=== PATIENT | male | born 1965 | race Caucasian/White ===

== ENCOUNTER 2017-11-16 17:10 | Inpatient (IN) | payer MEDICAID, OTHER ==
[~2017-11-16] VITALS: Ht 182.9 cm; Wt 77.1 kg
--- NOTE | 2017-11-16 19:09 | NUR ---
Pre-Admission Note Received pt at intake; accompanied by a friend, who often answer question for pt. Pt is A/Ox4, respirations even and unlabored. Pt has poor eye contact, is odorous of ETOH, appears to be intoxicated. Pt reports NKA, PMH of anxiety and depression which he takes Lexapro for. Pt reports SZ r/t ETOH withdrawal; recent one was 2 weeks ago. Pt reports admitted in the ER; pts friends had taken him due to severe intoxication 2 days ago, pt was prescribed Librium and pt reports [facility] one [facility] Initial VS are: BP 121/76, HR: 95, RR: 18 Substance Use Hx: ETOH Vodka a fifth daily the past week however pt has been drinking a total of 2 years. Pt states, he would typically buy a fifth and drink half one day and the other half, the next day. Last drink today 11/16/17 1640; pt reports he has been drinking a fifth throughout all day. First drank at age 20. Longest period of sobriety is 6 months in 2016. All pertinent info given to slot shift manager nurse.
[2017-11-16 19:29] LABS: *AMPHETAMINE, URINE NEGATIVE (NEGATIVE); *BARBITURATE, URINE NEGATIVE (NEGATIVE); *CANNABINOID, URINE NEGATIVE (NEGATIVE); *COCCAINE, URINE NEGATIVE (NEGATIVE); *OPIATE, URINE NEGATIVE (NEGATIVE); *PHENCYCLIDINE SCREEN,URINE NEGATIVE (NEGATIVE)
--- NOTE | 2017-11-16 19:30 | NUR ---
Admission note Patient is a 52 year old male admitted on 11/16/2017 at 1900. Patient is here at [facility] for medically supervised ETOH withdrawal. Patient states he has been using 750 ml (fifth) every day for a week, but he was using 375 ml for the past 2 years consistent. Patient admits he started drinking at the age of [age] years old. Patient stated: there are days when I drink half of fifth and then finish off the rest the next day. Patient has been drinking for 24 years without periods of abstinence. Patient states his longest period of sobriety was two years ago for 6 months at the end of fall 2015. Patients last drink was today 11/16/2017 at 1640 a total of fifth, a fifth spread out all day. Patient is noted to be intoxicated and is currently not showing s/s of withdrawal. Patient is noted to be tired and sleepy. Patient provided urine and blood will be done at unit. Patient admits taking Librium at 1600 and feels really tired. Patient is alert oriented x4, appears fatigue, disheveled, depressed, poor eye contact, and worried. Patient has a history of depression, anxiety, seizure, shoulder dislocated in 1982, and appendectomy 2008. Patient denies smoking or being a former smoker. Father history of alcohol and smoking abuse, and mother was a prescribed drug addict. Patient has two younger brothers and denies any past medical history. Pt brought home medications of Keppra 500 mg, Lexapro, 10 mg, Lexapro 20 mg, Librium 25 mg, and Naltrexone 50 mg. All medications have been reconciled. Patient currently sees Dr. Joanne Cabrera in [place]. Patient denies seeing a psychiatrist. Patient has been in a Detox center in [place] in 2016, he said he does not recall the name of the detox center. Patient admitted having a seizure 2 days ago and received medical treatment; patient also had another seizure two weeks ago. Patient was provided with MRSA swab testing and sent to the lab. Substance abuse 1) ETOH (Vodka): 750 ml of vodka daily for one week at this rate, and 375 ml daily for two years. Patient started drinking at age [age] years old. Last drink was 750mL on 11/16/2017 at 1640. When asked patient what are his typical withdrawal symptoms, patient stated shaky, tremors, chills with sweats, and seizures. Patient denies withdrawal induced delirium, cardiac complication, overdose and blackouts. Patient also denies being in a 5150 or SI/SA in the past. Patient is 61 and weights 170 lbs per standing scale. Patient denies any allergies, and follows a regular diet at home. Patient is a full code. Patients skin is intact, and was noted to have bilateral bruising in knees from an old fall. Patient was also noted to have bruising in the left upper quadrant/chest from a recent fall. Patient denies pain from bruising. Skin is warm, dry and capillary refill is < 3 seconds. PERRLA is present, pupils are 3 mm bilaterally. Lungs are clear bilaterally, abdomen is soft and bowel sounds are present in all four quadrants. Patient last bowel movement was earlier today 11/16/2017. Initial vital signs: BP: 108/64, O2 96% room air, Pulse 73, Temp 98.4, and RR 20. Patient denies pain. Patient admits facing legal consequences as a result of his alcohol use. Patients highest level of education is bachelors degree. 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 Patient stated: I have tried getting sober multiple times and I thought I could control it but I was wrong. Patient was asked what would be different this time, he answered: Im hoping that enough has happened where if I dont stop now, otherwise Im going to . Patient added: Zehra realized I hit a point in my life where if I dont get help now its going to get worse and worse; I just kind of surrender the last couple days I have been very mean to my friends, flipping out on them, I realize it is either now or never. Patient was oriented to the unit at 1900, teaching of rules and policies were explained to patient. Patient is on Seizure and Fall precautions. Safety measures in place, bed lock in low position, side rails up x2, and call light within reach. Respirations are even and unlabored. Will continue to monitor.
[2017-11-16 20:00] VITALS: BP 108/64
[2017-11-16] MEDS ORDERED: ONDANSETRON ODT 4 MG TAB.RAPDIS SL PRN (20:00)
[2017-11-16] MEDS ORDERED: THIAMINE HCL 200 MG/2 ML VIAL IM ONE (20:00)
[2017-11-16] MEDS ORDERED: ONDANSETRON 4 MG/2 ML VIAL IM PRN (20:00)
[2017-11-16] MEDS ORDERED: HYDROXYZINE PAMOATE 25 MG CAPSULE PO PRN (20:00)
[2017-11-16] MEDS ORDERED: DICYCLOMINE HCL 20 MG TABLET PO PRN (20:00)
[2017-11-16] MEDS ORDERED: MAGNESIUM HYDROXIDE 30 ML LIQUID UDC PO PRN (20:00)
[2017-11-16] MEDS ORDERED: LORAZEPAM 2 MG/1 ML VIAL IM PRN (20:00)
[2017-11-16] MEDS ORDERED: CLONIDINE HCL 0.1 MG TABLET PO PRN (20:00)
[2017-11-16] MEDS ORDERED: MAG HYDROX/AL HYDROX/SIMETH 30 ML LIQUID UDC PO PRN (20:00)
[2017-11-16] MEDS ORDERED: LOPERAMIDE HCL 2 MG CAPSULE PO PRN ×2 (20:00)
[2017-11-16] MEDS ORDERED: IBUPROFEN 600 MG TABLET PO PRN (20:00)
[2017-11-16] MEDS ORDERED: DIAZEPAM 10 MG TABLET PO PRN ×2 (20:00)
[2017-11-16] MEDS ORDERED: DIAZEPAM 5 MG TABLET PO PRN (20:00)
--- NOTE | 2017-11-16 20:00 | NUR ---
Initial CIWA Assessment Patient is presenting with s/s of withdrawal as followed: mild tremors, barely sweats, nervous, agitation, and light sensitivity. CIWA is 8. Respirations are even and unlabored. Safety measures in place will continue to monitor.
[2017-11-16 21:26] LABS: BILIRUBIN,TOTAL 0.4 mg/dL (0.2-1.0); CREATININE 0.9 mg/dL (0.6-1.3); POTASSIUM 3.5 mmol/L (3.5-5.1); TOTAL PROTEIN, SERUM 7.2 g/dL (6.4-8.2)
[2017-11-16 21:29] LABS: BASOPHILS # (AUTO) 0.1 K/uL (0.0-8.0); BASOPHILS % (AUTO) 3.4 % (0.0-2.0); EOSINOPHILS # (AUTO) 0.1 K/uL (0.0-0.7); EOSINOPHILS % (AUTO) 1.9 % (0.0-7.0); HEMOGLOBIN 13.9 g/dL (12.5-16.3); LYMPHOCYTES # (AUTO) 1.3 K/uL (20.0-40.0); LYMPHOCYTES % (AUTO) 40.6 % (20.5-51.5); MEAN CORPUSCULAR HEMOGLOBIN 32.8 uug (23.8-33.4); MEAN CORPUSCULAR HGB CONC 35 g/dL (32.5-36.3); MEAN CORPUSCULAR VOLUME 94.7 fL (73.0-96.2); MONOCYTES # (AUTO) 0.4 K/uL (2.0-10.0); MONOCYTES % (AUTO) 11.2 % (0.0-11.0); NEUTROPHILS # (AUTO) 1.3 K/uL (1.8-8.9); NEUTROPHILS % (AUTO) 42.9 % (38.5-71.5); PLATELET COUNT (AUTO) 139 K/uL (152-348); RED BLOOD CELL COUNT(AUTO) 4.22 MIL/uL (4.06-5.63); WHITE BLOOD COUNT (AUTO) 3.1 K/uL (3.6-10.2)
[2017-11-16 21:37] LABS: THYROID STIMULATING HORMONE 0.962 mIU/mL (0.358-3.740)
[2017-11-16] MEDS ORDERED: CHLO25CA22 PO (22:37)
[2017-11-16] MEDS ORDERED: ESCI10TA55 PO (22:37)
[2017-11-16] MEDS ORDERED: LEVE500T9 PO (22:37)
[2017-11-16] MEDS ORDERED: NALT50TA PO (22:37)
[2017-11-16] MEDS ORDERED: ESCI20TA37 PO (22:37)
[2017-11-16] MEDS: diphenhydrAMINE 50 MG CAPSULE PO PRN (23:27)
--- NOTE | 2017-11-16 23:27 | NUR ---
PRN Benadryl Patient stated he wanted something for sleep, administered PRN Benadryl and was noted to be well tolerated by patient. Respirations are even and unlabored. Safety measures in place. Will continue to monitor for medication effectiveness.
[2017-11-17] VITALS: BP 104/68
--- NOTE | 2017-11-17 | NUR ---
CIWA Deferred Patient is noted resting in bed with eyes closed, respirations are even and unlabored. Per protocol patient is to be assessed while awake for CIWA. Safety measures in place will continue to monitor.
--- NOTE | 2017-11-17 00:27 | NUR ---
PRN Benadryl Reassessment Patient noted in bed with eyes closed, respirations even and unlabored. Medication noted to be effective. Safety measures in place, will continue to monitor.
[2017-11-17 04:00] VITALS: BP 108/70
--- NOTE | 2017-11-17 07:15 | NUR ---
End of shift Patient is a 52 year old male admitted on 11/16/2017 for medically supervised ETOH withdrawal. Patients last CIWA was 8. Patient is on Seizure and Fall precautions. Patient had PRN Benadryl for sleep. Patient slept for 11 hours and had a total intake of 1,151ml. Patient voided x1 and had no bowel movements. Patient appears fatigue, disheveled, depressed, poor eye contact, flat affect, and worried. Patient had MRSA swab done upon admission. Respirations are even and unlabored, will endorse to day shift.
--- NOTE | 2017-11-17 07:20 | NUR ---
Start Of Shift Report received from medical assistant instructor nurse. Patient is a 52 year old male admitted on 11/16/2017 for medically supervised ETOH withdrawal. Per medical assistant instructor pts last CIWA was an 8. Pt received PRN Benadryl last night for insomnia, which was effective, Pt slept a total of 11 hours last night. Pt is placed on fall and seizure precautions due to history of seizures last one being two days ago. Upon assessment pt presented with tremors a flushed face and sweat on his forehead. Pt c/o feeling anxious. Encouraged pt to drink plenty of fluids to compensate the sweats as well as help with the detox process. Plan of care followed, All safety measures in place will continue to monitor and provide support.
[2017-11-17 08:00] VITALS: BP 134/95
[2017-11-17] MEDS ORDERED: TUBERCULIN,PURIF.PROT.DERIV. 5 TU/0.1 ML TEST ID ONE (09:00)
[2017-11-17] MEDS ORDERED: 5 DAY TAPER VALIUM-SERENITY PROTOCOL PO PRN (09:00)
[2017-11-17] MEDS: DIAZEPAM 10 MG TABLET PO SCH ×4 (09:25→21:00)
[2017-11-17] MEDS: MULTIVITAMINS,THERAPEUTIC TABLET PO SCH (09:25)
[2017-11-17] MEDS: THIAMINE HCL 100 MG TABLET PO SCH (09:25)
[2017-11-17] MEDS: FOLIC ACID 1 MG TABLET PO SCH (09:25)
[2017-11-17 12:00] VITALS: BP 138/76
--- NOTE | 2017-11-17 12:00 | NUR ---
CIWA 13 Pt presented with sweats, a flushed face, agitation and fine tremors, pt c/o anxiety, abdominal cramps and fatigue. Pt educated on relaxation techniques and breathing techniques to decrease anxiety, all scheduled medication administered will contine to monitor.
[2017-11-17] MEDS: LEVETIRACETAM 500 MG TABLET PO SCH ×2 (12:27→16:48)
--- NOTE | 2017-11-17 14:39 | NUR ---
Therapist prompted client to attend group therapy, but client reported feeling sick and needing to rest for today.
[2017-11-17 16:00] VITALS: BP 113/62
--- NOTE | 2017-11-17 19:03 | NUR ---
End of shift Report given to overnight babysitter nurse plan of care followed vital signs monitored closely Q4H. Withdrawal symptoms were closely monitored, medication given as scheduled. Initial CIWA 7. Pt encouraged adequate PO fluid intake as tolerated. Pt presented with sweats, flushed face, anxiety some agitation and yawning during the day. Pt received her scheduled taper medication as ordered. Pt seen by primary MD and primary psychiatrist, his home medications have been reconciled and continued. Pt did not receive any PRN medications during the day. Last CIWA 12. Pt reported that the taper medication Valium has been working well at controlling the withdrawal symptoms. Pt ate all of the meals, pt attended all groups and activities to learn new coping skills to prevent relapse. Pt denied any SI/HI. All safety measures in place, bed in lowest locked position, call light within reach. All needs met and attended.
--- NOTE | 2017-11-17 19:12 | NUR ---
Start of shift note Received report from day shift nurse. Pt is a 52 yo male, A+Ox4, presenting to [facility] for medically supervised ETOH withdrawal. Pt noted with fatigue, anxiety, and agitation. Pt has HX of depression, anxiety, and seizure which will be monitored during shift. Pt continues on 5 day Valium taper, tolerated well. Respirations even and unlabored. Will continue to monitor.
--- NOTE | 2017-11-17 20:10 | NUR ---
CIWA Assessment CIWA: 11. Pt noted with fine tremors, sweat on brow, anxiety, and agitation. Respirations even and unlabored. Will continue to monitor.
[2017-11-17 20:21] VITALS: BP 132/88
--- NOTE | 2017-11-18 00:35 | NUR ---
V/S refused and CIWA Assessment deferred for sleep. Respirations even and unlabored. Will continue to monitor.
--- NOTE | 2017-11-18 04:03 | NUR ---
V/S refused and CIWA Assessment deferred for sleep. Respirations even and unlabored. Will continue to monitor.
--- NOTE | 2017-11-18 06:57 | NUR ---
End of shift note Pt was continuously noted with fatigue, anxiety, and agitation. Pt remained in room for entire shift. Pt remained cooperative and compliant with all aspects of treatment. Pt was not given any PRN medications during shift. @2100 dose of Valium was held for sleep. Pt remains on 5 day Valium taper, tolerated well. Pt slept for a total of 7 HRS. Last CIWA: 11 @2009. Respirations even and unlabored. Will endorse to day shift nurse.
--- NOTE | 2017-11-18 07:36 | NUR ---
BEGINNING OF SHIFT Patient endorsement report received from shift production associate nurse, all pertinent information was discussed. Patient is a 52 year old male with NKA, patient with admitting dx: etoh Withdrawal. Patient continues with ongoing 5 day valium taper, patient is scheduled to begin day 2 of taper. As per shift production associate patient with last CIWA score of: 11. Received no PRNs. Slept for 7 hours. patient received awake, alert and oriented x4, educated regarding plan of care for the day and medication regimen. safety measures are in place. call light with in reach, will continue to monitor closely.
[2017-11-18 08:06] LABS: HEPATITIS B SURFACE AG Negative (Negative)
[2017-11-18 08:51] VITALS: BP 121/86
[2017-11-18] MEDS: THIAMINE HCL 100 MG TABLET PO SCH (09:09)
[2017-11-18] MEDS: LEVETIRACETAM 500 MG TABLET PO SCH ×2 (09:09→16:59)
[2017-11-18] MEDS: FOLIC ACID 1 MG TABLET PO SCH (09:09)
[2017-11-18] MEDS: MULTIVITAMINS,THERAPEUTIC TABLET PO SCH (09:09)
[2017-11-18] MEDS: DIAZEPAM 10 MG TABLET PO SCH ×3 (09:09→20:04)
[2017-11-18] MEDS: ESCITALOPRAM OXALATE 10 MG TABLET PO SCH (09:09)
[2017-11-18 12:16] VITALS: BP 122/89
--- NOTE | 2017-11-18 12:18 | NUR ---
Therapist prompted client to attend group therapy.
--- NOTE | 2017-11-18 13:00 | NUR ---
CIWA ASSESSMENT Patient continues to exhibit the following s/sx of withdrawal: Tremors, sweats, anxiety, agitation, restlessness, generalized discomfort, mild numbness to right side fingers, and emotional volatility. Patient with last CIWA score of: 14. Will continue to monitor. safety measures in place.
[2017-11-18 17:00] VITALS: BP 122/89
--- NOTE | 2017-11-18 17:00 | NUR ---
CIWA ASSESSMENT Still presenting with: Tremors, sweats, anxiety, agitation, restlessness, generalized discomfort, mild numbness to right side fingers, and emotional volatility. Patient with last CIWA score of: 14. Will continue to monitor. safety measures in place.
--- NOTE | 2017-11-18 18:47 | NUR ---
CIWA ASSESSMENT Patient exhibited the following s/sx of withdrawal: Tremors, sweats, anxiety, agitation, restlessness, generalized discomfort, mild numbness to right side fingers, and emotional volatility. Patient with last CIWA score of: 14. Will continue to monitor.
--- NOTE | 2017-11-18 19:11 | NUR ---
END OF SHIFT Patient in room, alert and oriented x4, continues under close observation, patient presented disheveled, odorous, and unkempt with poor regards to hygiene. Encouraged maintenance of personal space and self grooming. Linen change offered and declined. Patient noted isolative, encouraged to participate in group therapies/sessions to learn new coping skills to prevent relapse. Patient continues with ongoing 5 day Valium taper as ordered, continues on day 2 of taper. Patient exhibited the following s/sx of withdrawal: Tremors, sweats, anxiety, agitation, restlessness, generalized discomfort, mild numbness to right side fingers, and emotional volatility. Patient with last CIWA score of: 14. Received no PRN medications during shift. Denies SI/HI. Safety measures are in place. Fall and seizure precautions observed and in place. Call light with in reach, will continue to monitor closely. Endorsed to shift engineer nurse, all pertinent information was discussed.
--- NOTE | 2017-11-18 19:12 | NUR ---
Start of shift note Received report from day shift nurse. Pt is a 52 yo male, A+Ox4, presenting to [facility] for medically supervised ETOH withdrawal. Pt noted with anxiety, agitation, and fatigue. Pt has HX of depression, anxiety, and seizure which will be monitored during shift. Pt is on 5 day Valium taper, tolerated well. Respirations even and unlabored. Will continue to monitor.
[2017-11-18 20:10] VITALS: BP 130/97
--- NOTE | 2017-11-18 20:10 | NUR ---
CIWA Assessment CIWA: 12. Pt noted with fine tremors, sweat on forehead, anxiety, agitation, and mild itchiness. Respirations even and unlabored. Will continue to monitor.
--- NOTE | 2017-11-19 00:53 | NUR ---
V/S refused and CIWA Assessment deferred for sleep. Respirations even and unlabored. Will continue to monitor.
--- NOTE | 2017-11-19 04:26 | NUR ---
V/S refused and CIWA Assessment deferred for sleep. Respirations even and unlabored. Will continue to monitor.
--- NOTE | 2017-11-19 07:00 | NUR ---
End of shift note Pt was continuously noted with restlessness, agitation, and anxiety. Pt remained in room for majority of shift except to get food from kitchen. Pt remained cooperative and compliant with all aspects of treatment. Pt was not given any PRN medications during shift. Pt remains on 5 day Valium taper, tolerated well. Pt slept for a total of 6 HRS. Last CIWA: 12 @2009. Respirations even and unlabored. Will endorse to day shift nurse.
[2017-11-19 07:06] LABS: BILIRUBIN,TOTAL 0.7 mg/dL (0.2-1.0); CREATININE 0.8 mg/dL (0.6-1.3); POTASSIUM 3.6 mmol/L (3.5-5.1); TOTAL PROTEIN, SERUM 7.2 g/dL (6.4-8.2)
--- NOTE | 2017-11-19 07:13 | NUR ---
BEGINNING OF SHIFT Patient received awake, alert and oriented x4, educated regarding plan of care for the day and medication regimen. Patient endorsement report received from english composition teacher nurse, all pertinent information was discussed. Patient continues with ongoing 5 day valium taper, patient is scheduled to begin day 3 of taper. As per english composition teacher patient with last CIWA score of: 11. Received no PRNs. Slept for 6 hours. safety measures are in place. call light with in reach, will continue to monitor closely.
[2017-11-19 08:53] VITALS: BP 116/82
[2017-11-19] MEDS: FOLIC ACID 1 MG TABLET PO SCH (08:55)
[2017-11-19] MEDS: LEVETIRACETAM 500 MG TABLET PO SCH ×2 (08:55→16:49)
[2017-11-19] MEDS: MULTIVITAMINS,THERAPEUTIC TABLET PO SCH (08:55)
[2017-11-19] MEDS: THIAMINE HCL 100 MG TABLET PO SCH (08:55)
[2017-11-19] MEDS: DIAZEPAM 5 MG TABLET PO SCH ×4 (08:56→22:26)
[2017-11-19] MEDS: ESCITALOPRAM OXALATE 10 MG TABLET PO SCH (08:56)
--- NOTE | 2017-11-19 09:00 | NUR ---
CIWA ASSESSMENT Patient noted exhibiting the following s/sx of withdrawal: Tremors, sweats, anxiety, agitation, restlessness, generalized discomfort,, and emotional volatility. Patient with CIWA score of: 13. Safety measures in place. will continue to monitor.
[2017-11-19 12:52] VITALS: BP 102/74
--- NOTE | 2017-11-19 13:00 | NUR ---
CIWA ASSESSMENT Continues to present with: Tremors, sweats, anxiety, agitation, restlessness, generalized discomfort,, and emotional volatility. Patient with CIWA score of: 13
[2017-11-19 17:23] VITALS: BP 113/67
--- NOTE | 2017-11-19 17:36 | NUR ---
CIWA ASSESSMENT Noted exhibiting the following s/sx of withdrawal during shift. Tremors, sweats, anxiety, agitation, restlessness, generalized discomfort,, and emotional volatility. Patient with CIWA score of: 13
--- NOTE | 2017-11-19 19:00 | NUR ---
END OF SHIFT Alert and Oriented x4, admitting Dx: etoh withdrawal, patient continues under close observation patient. Noted exhibiting the following s/sx of withdrawal during shift. Tremors, sweats, anxiety, agitation, restlessness, generalized discomfort,, and emotional volatility. Patient with last CIWA score of: 13. Continues with ongoing Valium taper as ordered, detox medication effective at reducing withdrawal symptoms. Noted disheveled, unshaven, and unkempt with poor regards to hygiene. Encouraged maintenance of personal space and self grooming. Patient noted attending group therapies during shift. Encouraged continual participation in group therapies/sessions to learn new coping skills to prevent relapse. Received no PRN medications during shift. Denies SI/HI. Safety measures are in place. Fall and seizure precautions observed and in place. Call light with in reach, will continue to monitor closely. Endorsed to regulatory services consultant nurse, all pertinent information was discussed.
--- NOTE | 2017-11-19 19:10 | NUR ---
Start of shift note Received report from day shift nurse. Pt is a 52 yo male, A+Ox4, presenting to [facility] for medically supervised ETOH withdrawal. Pt noted with anxiety, agitation, and restlessness. Pt has HX of depression, anxiety, and seizure which will be monitored during shift. Pt is on 5 day Valium taper, tolerated well. Respirations even and unlabored. Will continue to monitor.
[2017-11-19 20:41] VITALS: BP 124/88
--- NOTE | 2017-11-19 20:41 | NUR ---
CIWA Assessment CIWA: 9. Pt noted with fine tremors, anxiety, agitation, and sweat on brow. Respirations even and unlabored. Will continue to monitor.
--- NOTE | 2017-11-20 00:58 | NUR ---
V/S refused and CIWA Assessment deferred for sleep. Respirations even and unlabored. Will continue to monitor.
--- NOTE | 2017-11-20 04:41 | NUR ---
V/S refused and CIWA Assessment deferred for sleep. Respirations even and unlabored. Will continue to monitor.
--- NOTE | 2017-11-20 06:58 | NUR ---
End of shift note Pt was continuously noted with restlessness, agitation , and anxiety. Pt remained in room for majority of shift except to get food from kitchen and to interact with other patients in recreational room. Pt remained cooperative and compliant with all aspects of treatment. Pt was not given any PRN medications during shift. Pt remains on 5 day Valium taper, tolerated well. Pt slept for a total of 6 HRS. Last CIWA: 9 @2040. Respirations even and unlabored. Will endorse to day shift nurse.
[2017-11-20 07:11] LABS: BASOPHILS % (AUTO) 0.6 % (0.0-2.0); EOSINOPHILS # (AUTO) 0.1 K/uL (0.0-0.7); EOSINOPHILS % (AUTO) 3.4 % (0.0-7.0); HEMATOCRIT 40.8 % (36.7-47.1); HEMOGLOBIN 14.5 g/dL (12.5-16.3); LYMPHOCYTES # (AUTO) 1.4 K/uL (20.0-40.0); MEAN CORPUSCULAR HGB CONC 36 g/dL (32.5-36.3); MEAN CORPUSCULAR VOLUME 92.8 fL (73.0-96.2); MONOCYTES # (AUTO) 0.6 K/uL (2.0-10.0); MONOCYTES % (AUTO) 14.4 % (0.0-11.0); NEUTROPHILS # (AUTO) 2.2 K/uL (1.8-8.9); NEUTROPHILS % (AUTO) 49.6 % (38.5-71.5); PLATELET COUNT (AUTO) 198 K/uL (152-348); RED BLOOD CELL COUNT(AUTO) 4.39 MIL/uL (4.06-5.63); WHITE BLOOD COUNT (AUTO) 4.4 K/uL (3.6-10.2)
[2017-11-20 07:16] LABS: BILIRUBIN,TOTAL 0.6 mg/dL (0.2-1.0); CREATININE 0.9 mg/dL (0.6-1.3); POTASSIUM 3.6 mmol/L (3.5-5.1); TOTAL PROTEIN, SERUM 7.3 g/dL (6.4-8.2)
--- NOTE | 2017-11-20 07:34 | NUR ---
BEGINNING OF SHIFT Endorsement report received from nurse, all information was discussed in regards to patient. Ongoing 5 day Valium taper, patient is scheduled to begin day 4 of taper. As per lead man over all dies in pattern shop patient with last CIWA score of: 9. Received no PRNs. Slept for 6 hours. Currently awake, alert and oriented x4, educated regarding plan of care for the day and medication regimen, with good verbal understanding.safety measures are in place. call light with in reach, will continue to monitor closely.
[2017-11-20 08:18] VITALS: BP 93/61
--- NOTE | 2017-11-20 08:45 | NUR ---
CIWA ASSESSMENT Noted to exhibiting the following s/sx of withdrawal: restlessness, generalized discomfort, Tremors, sweats, anxiety, agitation and emotional volatility. Patient with current CIWA score of: 10. Will continue to monitor.
[2017-11-20] MEDS: DIAZEPAM 5 MG TABLET PO SCH ×3 (08:48→21:42)
[2017-11-20] MEDS: LEVETIRACETAM 500 MG TABLET PO SCH ×2 (08:48→17:14)
[2017-11-20] MEDS: FOLIC ACID 1 MG TABLET PO SCH (08:48)
[2017-11-20] MEDS: MULTIVITAMINS,THERAPEUTIC TABLET PO SCH (08:48)
[2017-11-20] MEDS: THIAMINE HCL 100 MG TABLET PO SCH (08:48)
[2017-11-20] MEDS: ESCITALOPRAM OXALATE 10 MG TABLET PO SCH (08:48)
[2017-11-20 13:03] VITALS: BP 109/83
--- NOTE | 2017-11-20 13:20 | NUR ---
CIWA ASSESSMENT Still presenting with: restlessness, generalized discomfort, Tremors, sweats, anxiety, agitation and emotional volatility. Patient with current CIWA score of: 10. Will continue to monitor.
--- NOTE | 2017-11-20 16:51 | NUR ---
CIWA ASSESSMENT Continues to exhibit the following s/sx of withdrawal: restlessness, generalized discomfort, Tremors, sweats, anxiety, agitation and emotional volatility. Patient with last CIWA score of: 10. Will continue to monitor.
[2017-11-20 17:05] VITALS: BP 103/74
--- NOTE | 2017-11-20 18:59 | NUR ---
END OF SHIFT Patient alert and oriented x4, not with anxious affect and anxious mood. Provided with calming reassurance as needed. Continues under close observation, noted exhibiting the following s/sx of withdrawal: restlessness, generalized discomfort, Tremors, sweats, anxiety, agitation and emotional volatility. Patient with last CIWA score of: 10. Continues with ongoing Valium taper as ordered, detox medication effective at reducing withdrawal symptoms. Patient noted attending group therapies during shift. Encouraged continual participation in group therapies/sessions to learn new coping skills to prevent relapse. Received no PRN medications during shift. Denies SI/HI. Safety measures are in place. Fall and seizure precautions observed and in place. Call light with in reach, will continue to monitor closely. Endorsed to shift engineer nurse, all pertinent information was discussed.
--- NOTE | 2017-11-20 19:30 | NUR ---
Start of Shift Note Received a 52 y/o male px, admitted for medically supervised withdrawal from ETOH. He was put on 5 day Valium taper started on 11/17/2017. Px is tolerating it. Last reported CIWA 10 by AM shift nurse. During the rounds at 1930, px is awake on bed in fowlers position, watching TV. Few drinks noted on top of the bed side table. He states that his anxiety is pretty mild. Bilateral hand tremors noted on extended arms. Bed on lowest position, side rails up 2x, and call light within reach. Well continue to monitor.
[2017-11-20 20:00] VITALS: BP 108/80
--- NOTE | 2017-11-20 20:00 | NUR ---
CIWA 8 Upon assessment, px states that his anxiety is pretty mild. Bilateral hand tremors noted on extended arms. will continue to monitor
[2017-11-20] MEDS: diphenhydrAMINE 50 MG CAPSULE PO PRN (21:42)
--- NOTE | 2017-11-20 21:42 | NUR ---
PRN Benadryl Px received Benadryl 50 mg PO for insomnia. To reassess after an hour
--- NOTE | 2017-11-20 22:45 | NUR ---
JACQUE Estrada reassessment Px at this moment is still awake. He is on the bed in fowlers position, watching TV. will continue to monitor
[2017-11-21] VITALS: BP 100/74
--- NOTE | 2017-11-21 | NUR ---
CIWA deferred CIWA deferred due to the px is asleep, to assess if the px is awake per doctor's order. will continue to monitor
[2017-11-21 04:00] VITALS: BP 108/71
--- NOTE | 2017-11-21 04:00 | NUR ---
CIWA deferred CIWA deferred due to the px is asleep, to assess if the px is awake per doctor's order. will continue to monitor
--- NOTE | 2017-11-21 07:10 | NUR ---
End of Shift Note During the shift at 2142, px received Benadryl 50 mg PO for insomnia. Px slept for 7 hours. Oral intake of 1500 ml, voided 3x with BM 1x. Last CIWA 8. Bed on lowest position, side rails up 2x, and call light within reach. Well continue to monitor. Px endorsed to AM shift nurse.
--- NOTE | 2017-11-21 07:30 | NUR ---
START OF SHIFT Endorse rcvd from ongoing nurse, client is in bed, lying on his L side, sounds asleep, easy to arouse, RR 16 even, non-labored. PRN Benadryl 50mg PO for sleep, client slept 7 hrs. Client is on last of 5 day Valium. Last CIWA 8 @ 1999. Call light within reach. Will continue to monitor.
[2017-11-21 08:32] VITALS: BP 113/75
[2017-11-21] MEDS: MULTIVITAMINS,THERAPEUTIC TABLET PO SCH (09:33)
[2017-11-21] MEDS: LEVETIRACETAM 500 MG TABLET PO SCH ×2 (09:33→17:11)
[2017-11-21] MEDS: ESCITALOPRAM OXALATE 10 MG TABLET PO SCH (09:33)
[2017-11-21] MEDS: DIAZEPAM 5 MG TABLET PO SCH ×2 (09:33→20:44)
[2017-11-21] MEDS: FOLIC ACID 1 MG TABLET PO SCH (09:33)
[2017-11-21] MEDS: THIAMINE HCL 100 MG TABLET PO SCH (09:33)
--- NOTE | 2017-11-21 09:33 | NUR ---
CIWA 10 Client is in room, a/o x 4, he presents with agitation, flat affect, avoidant gaze, flushed facial skin, tremors felt, and clammy skin. Client reports difficulty concentrating. anhedonia, anxiety, poor appetite, chills, sweats, depression, tremors, restless legs, congestive nose, and fatigue. Scheduled Valium 5mg PO administered. Call light within reach.
[2017-11-21 12:36] VITALS: BP 100/76
--- NOTE | 2017-11-21 12:38 | NUR ---
CIWA 9 Client presents with anxious mood, flat affect, avoidant gaze, flushed facial skin, tremors felt, and clammy skin. Client reports feeling anxious, agitated, irritable, depressed, anhedonia, poor appetite, chills, tremors, restless legs, and fatigue. Encourage client to increase PO fluid intake as tolerated to facilitate detox. Non-pharmacological interventions rendered, will continue to monitor. Call light within reach.
--- NOTE | 2017-11-21 16:32 | NUR ---
CIWA 9 Client continues to present with anxiety, poor appetite, chills, clammy skin, difficulty concentrating, fatigue, fine tremors, flushed facial skin, nausea, and restless legs. Non-pharmacologic therapy rendered, will continue to monitor. Call light within reach.
[2017-11-21 16:50] VITALS: BP 113/75
--- NOTE | 2017-11-21 19:35 | NUR ---
END OF SHIFT Client continues to present with anxiety, poor appetite, chills, clammy skin, difficulty concentrating, fatigue, fine tremors, flushed facial skin, nausea, and restless legs. Last CIWA 9 @ 1700. Client is compliant with group therapy. PO fluid intake 1355mL, void x 4, stool x 1. Consumes 50-75% of meals. Seizure precautions in place. call light within reach.
[2017-11-21 20:00] VITALS: BP 102/66
--- NOTE | 2017-11-21 20:00 | NUR ---
CIWA Assessment Patient is presenting with s/s of withdrawal as follow: tremors, barely sweating, anxiety, and agitation. Patients CIWA is 7. Respirations are even and unlabored. Safety measures in place, will continue to monitor.
--- NOTE | 2017-11-21 20:00 | NUR ---
Start of shift Patient is a 52 year old male, admitted on 11/16/2017 here at [facility] for medically supervised ETOH withdrawal. Patient is on a 5 day Valium taper started on 11/17/2017. Patient is on Fall and Seizure precautions. Per endorsement patient did not have any PRN medications. Patients last CIWA was 9. Patient is schedule for liver function test for 11/22/2017 at 0600. Upon rounds patient was noted in room watching TV, plan of care was explain to patient. Reviewed 2100 medications and patient requested for PRN Benadryl for insomnia. Patient admitted he has been attending group and he is complaint with therapeutic plan of care. Respirations are even and unlabored. Safety measures in place, bed lock in lowest position, side rails up x2, and call light within reach. Will continue to monitor.
[2017-11-21] MEDS: diphenhydrAMINE 50 MG CAPSULE PO PRN (20:44)
--- NOTE | 2017-11-21 20:44 | NUR ---
PRN Benadryl 50 mg Patient is reporting difficulty falling asleep. Administered PRN Benadryl and patient tolerated well. Respirations are even and unlabored. Safety measures in place and will continue to monitor.
--- NOTE | 2017-11-21 21:44 | NUR ---
PRN Benadryl 50mg Reassessment Patient is noted in bed watching tv, patient reports he is falling asleep and that medication was effective. Patient denies any adverse effects, respirations are even and unlabored. Safety measures in place, will continue to monitor.
[2017-11-22] VITALS: BP 105/73
--- NOTE | 2017-11-22 | NUR ---
CIWA Assessment Patient is presenting with s/s of withdrawal as follow: barely sweating, anxiety, and agitation. Patients CIWA is 6. Respirations are even and unlabored. Safety measures in place, will continue to monitor.
[2017-11-22 04:00] VITALS: BP 102/69
--- NOTE | 2017-11-22 06:59 | NUR ---
End of shift Patient is a 52 year old male, admitted on 11/16/2017 here at [facility] for medically supervised ETOH withdrawal. Patient is on a 5 day Valium taper started on 11/17/2017. Patient is on Fall and Seizure precautions. Patient had PRN Benadryl for insomnia during this shift. Patients last CIWA was 6. Patient slept for 6 hours and had a total intake of 855ml. Patient voided x2 and had no bowel movements. Patient was compliant with therapeutic plan of care. Respirations are even and unlabored. Safety measures in place, bed lock in lowest position, side rails up x2, and call light within reach. Will endorse to day shift.
[2017-11-22 07:53] LABS: BILIRUBIN,DIRECT 0.1 mg/dL (0.0-0.2); BILIRUBIN,TOTAL 0.5 mg/dL (0.2-1.0); TOTAL PROTEIN, SERUM 7.4 g/dL (6.4-8.2)
--- NOTE | 2017-11-22 08:01 | NUR ---
Start Of Shift / CIWA 7 Received 52 y/o M admitted on 11/16/17 for medically supervised ETOH withdrawal. Pt is on a 5 day valium taper that started on 11/17/17 and completed yesterday. Pt received Benadryl prn last night, last CIWA 6 and pt slept for 6 hrs. Pt is still drowsy upon assessment, presents anxious mood, flat affect, restlessness, anxiety, and mild tremors are felt. Educated pt with s/s to report, plan of care and med regimen. Last COWS 9 and CIWA 10 and pt slept 6 hrs. Vistaril and benadril prns given last night. Side rails upx2, bed in lowest position. Call light is within reach. Will continue to monitor.
[2017-11-22 08:15] VITALS: BP 106/72
[2017-11-22] MEDS: LEVETIRACETAM 500 MG TABLET PO SCH ×2 (08:31→17:34)
[2017-11-22] MEDS: ESCITALOPRAM OXALATE 10 MG TABLET PO SCH (08:31)
[2017-11-22] MEDS: FOLIC ACID 1 MG TABLET PO SCH (08:31)
[2017-11-22] MEDS: MULTIVITAMINS,THERAPEUTIC TABLET PO SCH (08:31)
[2017-11-22] MEDS: THIAMINE HCL 100 MG TABLET PO SCH (08:31)
--- NOTE | 2017-11-22 12:00 | NUR ---
CIWA 7 Pt presents restlessness, anxiety, and mild tremors are felt. No prns. Safety measures in place. Will continue to monitor.
[2017-11-22 12:10] VITALS: BP 112/86
--- NOTE | 2017-11-22 12:39 | NUR ---
Therapist prompted client to attend group therapy sessions.
[2017-11-22] MEDS ORDERED: LEVE500T9 PO (14:38)
--- NOTE | 2017-11-22 16:30 | NUR ---
WA 7 Pt has been attending groups and activities, pt presents anxiety, and mild tremors are felt. Safety measures in place. Will continue to monitor.
[2017-11-22 16:42] VITALS: BP 100/68
--- NOTE | 2017-11-22 19:30 | NUR ---
Start of shift note Received report from day shift nurse. Patient is a 52 year old male admitted for ETOH withdrawal. Patient completed 5 day Valium taper. Patient is medically cleared to be discharge tomorrow. Patient did not require PRN medication . Last CIWA 7. Patient alert and oriented x 4. Patient's room is messy. Patient is unshaven and disheveled. He stated that he's anxious because he's leaving but excited to see the new place. Patient has bilateral hand tremors but patient states it's getting better. He reports intermittent perspiration . Safety measures in place. Call light within reach. Will continue to monitor.
--- NOTE | 2017-11-22 19:48 | NUR ---
End Of Shift Pt has completed a 5 day valium taper last night and is scheduled to be discharged tomorrow. Pt has been actively participating in groups. Last CIWA 7. Voided x1, bm x1. Fluid intake 1100 ml. No prns given. Safety measures in place. Endorsement given.
[2017-11-22 20:00] VITALS: BP 104/76
--- NOTE | 2017-11-22 20:00 | NUR ---
CIWA assessment Patient presents with anxiety, restless, has bilateral hand tremors and intermittent perspiration. CIWA 7
[2017-11-22] MEDS: diphenhydrAMINE 50 MG CAPSULE PO PRN (23:06)
--- NOTE | 2017-11-22 23:06 | NUR ---
PRN Benadryl administration Patient requests for sleep aid. Will monitor for effectiveness
[2017-11-23] VITALS: BP 102/70
--- NOTE | 2017-11-23 | NUR ---
CIWA deferred Patient lying in bed with eyes closed. Respiration even and unlabored. Will continue to monitor
[2017-11-23 04:00] VITALS: BP 110/74
--- NOTE | 2017-11-23 04:00 | NUR ---
CIWA deferred Patient lying in bed with eyes closed. Respiration even and unlabored. Will continue to monitor
--- NOTE | 2017-11-23 07:10 | NUR ---
End of shift note Patient slept 6 hours. Fluid intake 855 ml. Voided x 1. No BM . Patient completed 5 day Valium taper. Patient is medically cleared to be discharge today. Patient alert and oriented x 4. Patient is unshaven and disheveled. He stated that he's anxious because he's leaving and excited to see the new place. Patient with bilateral hand tremors but patient states it's getting better. He reported intermittent perspiration . Patient was given PRN Benadryl for sleep. Safety measures in place. Call light within reach. Will continue to monitor. Last CIWA 7.
--- NOTE | 2017-11-23 07:39 | NUR ---
Start Of Shift / CIWA 7 Received 52 y/o M admitted on 11/16/17 for medically supervised ETOH withdrawal. Pt was on a 5 day valium taper that started on 11/17/17 and completed yesterday. Pt is scheduled to be discharge today. Pt received tylenol prn last night, last CI 7 and pt slept for 11 hrs. Pt presents an anxious mood, flat affect, restlessness, fatigue, anxiety, and mild tremors are felt. Side rails upx2, bed in lowest position. Call light is within reach. Will continue to monitor.
[2017-11-23 08:41] VITALS: BP 108/74
[2017-11-23] MEDS: LEVETIRACETAM 500 MG TABLET PO SCH (09:10)
[2017-11-23] MEDS: THIAMINE HCL 100 MG TABLET PO SCH (09:10)
[2017-11-23] MEDS: FOLIC ACID 1 MG TABLET PO SCH (09:10)
[2017-11-23] MEDS: MULTIVITAMINS,THERAPEUTIC TABLET PO SCH (09:10)
[2017-11-23] MEDS: ESCITALOPRAM OXALATE 10 MG TABLET PO SCH (09:22)
--- NOTE | 2017-11-23 09:25 | NUR ---
Discharge Note Pt is in stable condition, VS wnl. Pt has been given d/c instructions and pt verbalized understanding. Last CIWA 6. aware of patients d/c. Pt has left the building at 0925 with all belongings, prescriptions, and home meds. Pt has been picked up by [employer].
== END 2017-11-23 09:36 | disposition other institution (70) | DRG 772 ==
LOC: SRC 17:55
PROVIDERS: ADMIT Family Medicine Addiction Medicine; ATTEND Family Medicine Addiction Medicine
PROC: HZ2ZZZZ Detoxification Services for Substance Abuse Treatment (ICD-10-PCS; principal; 2017-11-16)
PROC: HZ31ZZZ Individual Counseling for Substance Abuse Treatment, Behavioral (ICD-10-PCS; 2017-11-18)
PROC: HZ41ZZZ Group Counseling for Substance Abuse Treatment, Behavioral (ICD-10-PCS; 2017-11-20)
DX: F10.239 Alcohol dependence with withdrawal, unspecified (principal); F10.220 Alcohol dependence with intoxication, uncomplicated; Y90.6 Blood alcohol level of 120-199 mg/100 ml; F41.1 Generalized anxiety disorder; Z81.3 Family history of other psychoactive substance abuse and dependence; Z81.1 Family history of alcohol abuse and dependence; G40.909 Epilepsy, unspecified, not intractable, without status epilepticus; Z79.899 Other long term (current) drug therapy; F32.9 Major depressive disorder, single episode, unspecified
CPT/HCPCS: 36415; 70030-TC; 80307; 83690; 83735; 84443; 85025; 86592; 86705; 86803; 87340; 87806; A4663; G0480; J3411; Q0163